=== PATIENT | male | born 1965 | race Caucasian/White ===

== ENCOUNTER 2021-11-06 15:44 | Outpatient (REF) | payer OTHER, SELFPAY ==
--- NOTE | ~2021-11-06 | XR_ITS ---
EXAMINATION: XR LUMBOSACRAL SPINE CLINICAL INFORMATION: Low back pain COMPARISON: None TECHNIQUE: Three views of the lumbosacral spine. FINDINGS: There is mild narrowing of the posterior L2-L3 and L3-L4 disc spaces. Anterior spurring is seen in the upper lumbar spine at the L3 level but no fracture or destructive process. There is facet degenerative change L4-S1. XR/XR lumbar spine 2-3V IMPRESSION: Multilevel degenerative change but no fracture.
== END 2021-11-06 15:45 | disposition home or self-care (01) ==
LOC: HO.XRAY 15:44
PROVIDERS: PCP Internal Medicine
DX: M54.50 Low back pain, unspecified (principal)
CPT/HCPCS: 72100